=== PATIENT | female | born 1960 | race Caucasian/White ===

== ENCOUNTER → 2016-10-03 | Outpatient (CLI) | payer MEDICARE ==
[2016-10-03 16:26] LABS: BASOPHILS % (AUTO) 0 % (0-2); EOSINOPHILS % (AUTO) 0 % (0-4); LYMPHOCYTES # (AUTO) 2.7 X10^3; MEAN CORPUSCULAR HEMOGLOBIN 29.8 PG (26.0-34.0); MEAN CORPUSCULAR HGB CONC 34.8 g/dL (31.0-37.0); MEAN CORPUSCULAR VOLUME 86 FL (80-100); MEAN PLATELET VOLUME 10.2 FL (6.0-9.5); MONOCYTES # (AUTO) 0.7 X10^3; MONOCYTES % (AUTO) 8 % (3-11); NEUTROPHILS # (AUTO) 5.9 X10^3; NEUTROPHILS % (AUTO) 63 % (51-67); PLATELET COUNT 417 10^3uL (150-450); WHITE BLOOD COUNT 9.31 10^3uL (4.0-11.0)
== END ==
LOC: EDBD 15:59 → LAB 15:59
PROVIDERS: ATTEND Internal Medicine Hematology & Oncology
DX: D68.61 Antiphospholipid syndrome (principal); R53.83 Other fatigue; E78.00 Pure hypercholesterolemia, unspecified
CPT/HCPCS: 36415; 80061; 82306; 82607; 84443; 85025

== ENCOUNTER → 2016-10-20 | Emergency (ER) | payer MEDICARE ==
[~2016-10-20] VITALS: Ht 162.6 cm; Wt 90.2 kg
--- NOTE | 2016-10-20 15:33 | NUR ---
Pt states to MD that she does not want any medications due to previous severe reactions. MD talked to pt about risks vs benefits
[2016-10-20 15:59] LABS: BASOPHILS % (AUTO) 0 % (0-2); EOSINOPHILS % (AUTO) 0 % (0-4); LYMPHOCYTES # (AUTO) 2.1 X10^3; MEAN CORPUSCULAR HGB CONC 35.1 g/dL (31.0-37.0); MEAN CORPUSCULAR VOLUME 86 FL (80-100); MEAN PLATELET VOLUME 10.5 FL (6.0-9.5); MONOCYTES # (AUTO) 0.6 X10^3; MONOCYTES % (AUTO) 7 % (3-11); NEUTROPHILS % (AUTO) 68 % (51-67); PLATELET COUNT 364 10^3uL (150-450); WHITE BLOOD COUNT 8.88 10^3uL (4.0-11.0)
[2016-10-20 16:03] LABS: ALBUMIN 4.2 g/dL (3.4-5.0); ALKALINE PHOSPHATASE 104 U/L (38-126); BUN/CREATININE RATIO 23 (10-20); CALCULATED IONIZED CALCIUM 3.8 mg/dL (3.8-4.6); TOTAL PROTEIN 7.9 g/dL (6.4-8.5)
[2016-10-20 17:20] VITALS: BP 165/88
== END | disposition home or self-care (01) ==
LOC: ED 15:10
DX: R07.9 Chest pain, unspecified (principal)
CPT/HCPCS: 36415; 71010; 80053; 84484; 85025; 85379; 93005; 93010; 99284

== ENCOUNTER → 2016-11-13 | Outpatient (REF) | payer MEDICARE | LOC: LAB 10:14 | PROVIDERS: ATTEND Family Medicine | DX: R73.01 Impaired fasting glucose (principal); E78.1 Pure hyperglyceridemia; H93.19 Tinnitus, unspecified ear; I10 Essential (primary) hypertension | CPT/HCPCS: 80061; 82607; 82746; 83036; 84443 ==

== ENCOUNTER → 2017-01-30 | Outpatient (CLI) | payer MEDICARE ==
[~2017-01-30] MED LIST: ENOX120D5 SQ; LANS30CA14 PO; OMEP20CA12 PO
--- NOTE | 2017-01-31 12:16 | Diagnostic Imaging Report ---
EXAM: DIG PATRICIA BILAT SCREEN W CAD The current study was also evaluated with a Computer Aided Detection (CAD) system. INDICATION: Screening. COMPARISON: Mammograms of 01/14/2014, 07/29/2015. DENSITY: Scattered areas of fibroglandular density. FINDINGS: No significant change. No mass, calcification or architectural distortion suspicious for malignancy in either breast. IMPRESSION: No mammographic findings suspicious for malignancy. RECOMMENDATION: Routine screening mammography in one year. BI-RADS category 1: Negative. ACR BI-RADS Category 1: Negative. Result letter will be mailed to the patient. Note: At least 10% of breast cancer is not imaged by mammography. Dictated by: Dictated on workstation # [id number]
== END ==
LOC: RAD 08:29
PROVIDERS: ATTEND Family Medicine
DX: Z12.31 Encounter for screening mammogram for malignant neoplasm of breast (principal)

== ENCOUNTER 2017-02-14 09:45 | Outpatient (RCR) | payer MEDICARE ==
--- NOTE | 2017-01-09 11:21 | PT/OT/ST INITIAL EVALUATION ---
Department of Health and Human Services Form Approved [facility] Care Financing Administration OMB No. [id number] PLAN OF CARE/ASSESSMENT FOR OUTPATIENT REHABILITATION (Complete for Initial Claims Only) 1. PATIENT'S NAME Christina Cárdenas 2. ACC # [id number] 3. [facility] [id number] 4. PROVIDER NO. [id number] 5. TYPE: PT 6. PRIOR HOSPITALIZATION None 7. PRIMARY DX M54.16 left lumbar radiculopathy 8. SECONDARY DX Low back pain, weakness, and difficulty walking. 9. ONSET DATE August 2016 10. REFERRAL DATE 01/05/2017 11. SOC. DATE 01/08/2017 12. TIME OF EVAL 8:46 a.m. to 9:39 a.m. 12. REFERRING PHYSICIAN Dr. Andrea Gonzalez 13. CHARGES/UNITS PT evaluation low complexity 81585 Therapeutic exercise 14241, 2 units 14. G CODES The Oswestry rates the patient as H2192-PO 36% limited and the goal is W8669-BC 0% limited in order to be able to return to walking for exercise and to be able to get up off the floor with minimal deviation. 15. PRIOR LEVEL OF FUNCTION; PERTINENT HISTORY (Prior therapy results, reason for referral.) S: Prior to therapy, the patient consented to today's evaluation and treatment. The patient is a 56-year-old female referred to physical therapy by Dr. Gonzalez to address functional limitations secondary to left lumbar radiculopathy. Mechanism of injury: The patient reports that 18 years ago she had a chip on her tailbone and has not had very many issues since and in August [address] to [place] from [place] and pain began at that time. The patient reports that she has fallen several times in the last month. She has pain down into her left leg to her mid calf. The patient reports having pain, numbness and tingling into her left calf. The patient states that she has bilateral low back pain, which is greater on the right side than the left. Primary Complaint: Bilateral low back pain, worse on the right and left lower extremity pain down to the mid calf. Occupational and social history: Voiceover artist, semi-retired. Prior level of function: The patient was able to do all of her normal activity with no issues prior to August 2016 and since August 2016, has had several falls due to her left leg giving out from underneath her. Pain level: The patient rates the current pain level at worst, 9/10 and can get as low as 0/10. The patient describes the pain as a stabbing pain. Obstacles to delivery of care: None noted. Aggravating factors: Include sitting, getting out of bed, taking a misstep. Relieving factors: Include an ice pack. Diagnostic testing: None. Past medical history: Includes having a previous left ankle fracture and no issues currently, environmental allergies, ulcers and stomach problems, high blood pressure which she is trying to control with diet and it is going down. Had a stroke in 2007, blood clot in 2009 in her knee which led to 2 pulmonary embolisms, so therefore is currently on high levels of blood thinners and wears a wrist band stating that. Past surgical history: Tonsillectomy, 2 C-sections, hysterectomy and oophorectomy. Current medications: Enoxaparin, Omeprazole. Leisure activities: Include swimming and walking. Activity level: Listed as low. The patient did walk around the [place] one time. Personal health rating: Listed as fair. Patient's Goal: The patient's goal for physical therapy is to relieve pain. 16. INITIAL ASSESSMENT/SAFETY PRECAUTIONS/MEDICAL COMPLICATIONS (Level of function at start of care. Be specific, use objective measures, list problems.) O: APPEARANCE AND OBSERVATION: The patient enters the clinic without any assistive device and ambulates with an antalgic gait pattern. The patient lives in a home with 2 steps into the home with no rail. No stairs inside her home and her daughter and father also live with her. The patient has had frequent falls. No bowel or bladder issues. No saddle anesthesia. The patient is unable to lay supine with legs extended. The patient has significant pain and altered motion when going from a sitting to standing position and also when standing to sitting. The patient has difficulty in a right-side lying position and does better with a left-side lying position and difficulty bending forward with aberrant motion going back to an upright posture. The patient was found to have L1 through 4 rotated to the left during flexion testing. PALPATION: The patient was tender through bilateral low back. SPECIAL TESTS: Right slump test done bilaterally positive for nerve tightness and left lower extremity slump test negative for nerve tightness and indicates muscle tightness. RANGE OF MOTION/FLEXIBILITY: Flexion 25% limited by pain and stiffness. Extension 90%, side bending bilateral 75%, right rotation 50% with pain, left rotation 50% with pain. STRENGTH: Manual muscle testing of lower extremities-flexion left 3/5, right 4/5. Abduction left 3/5, right 4-/5. Extension bilateral 3+/5. Knee manual muscle testing -flexion and extension left 3+/5, right 4-/5. Dorsiflexion and plantar flexion bilateral 4-/5. TODAY'S TREATMENT: Included the initial PT evaluation followed therapeutic exercise and the patient was instructed on a home exercise program. 17. INITIAL POC: (Specify procedures, modalities, short and chcf goals) A: This patient presents with the diagnosis of left lumbar radiculopathy with functional limitations of weakness, difficulty walking and low back pain. The patient would benefit from physical therapy in order to restore proper symmetry through low back and pelvis, as well as gaining motor control and activation of deep stabilizer muscles in order to decrease pain and decrease aberrant movement with positional changes. PROGNOSIS: The patient has a fair prognosis for increased overall functional capacity with regular therapy attendance and compliance with prescribed home exercise program. CONTRAINDICATIONS, PRECAUTIONS AND OBSTACLES TO DELIVERY OF CARE: The patient is on a high level of blood thinners and wears a bracelet on her left wrist. INFORMED CONSENT: The prognosis and goals were discussed with the patient, as well as the expected outcomes and possible risks. The patient agreed to undergo PT evaluation and further treatment. SHORT TERM GOALS: 1. The Oswestry is currently rating the patient as [id number]-HC 36% limited and the goal is M0075-CY 0% limited in order to be able to ambulate with minimal deviation. 2. The patient is to have a decrease in pain of the low back and left lower extremity to less than or equal to 2/10 in 6 weeks in order to return to walking without deviation. 3. The patient is to have an increase in manual muscle testing of the hips to 4+/5 in 6 weeks in order to be able to get up from the floor and bend forward at her waist without deviation for photographer still. 4. The patient is to have an increase in active range of motion of the lumbar spine in all planes to 75% without pain and without aberrant movement in order to return to cleaning without deviation. 5. The patient is to be independent with progressive home exercise program. P: Plan to treat this patient 2 times a week for 6 weeks. Treatment to include modalities for pain, and inflammation, manual therapy interventions, therapeutic exercise, active and passive range of motion, gait training, balance proprioceptive training, neural reeducation, and patient education and prescription of progressive home exercise program as tolerable. 18. FREQUENCY 2 times per week 19. DURATION 6 weeks 20. FUNCTIONAL LEVEL (End of claim period) 21. PHYSICIAN SIGNATURE ? ON FILE OR ENTER HERE: 22. DATE: I certify the need for these services furnished under this plan of care and if for partial hospitalization. 23. CERTIFICATION FROM THROUGH FORM [id number]
== END 2017-02-26 09:04 | disposition home or self-care (01) ==
LOC: PT 09:45
PROVIDERS: ATTEND Family Medicine
DX: M54.16 Radiculopathy, lumbar region (principal); M54.5 Low back pain; R53.1 Weakness; R26.2 Difficulty in walking, not elsewhere classified
CPT/HCPCS: 97110; 97140; 97161; G0283; G8978; G8979; 97014

== ENCOUNTER → 2017-02-16 | Outpatient (CLI) | payer MEDICARE ==
--- NOTE | 2017-02-16 18:28 | Diagnostic Imaging Report ---
INDICATION: Lumbar pain since August [address] drive, tailbone injury approximately 20 years ago. FINDINGS: Frontal and lateral views of the lumbar spine demonstrate no fracture or subluxation. There is disc space narrowing at L5-S1 with mild sclerosis. Mild facet arthropathy is also present at this level. IMPRESSION: There are degenerative changes of the L5-S1 disc space. Dictated by: Dictated on workstation # [id number]
== END ==
LOC: RAD 10:53
PROVIDERS: ATTEND Family Medicine
DX: M54.5 Low back pain (principal)
CPT/HCPCS: 72100

== ENCOUNTER → 2017-02-16 | Outpatient (REF) | payer MEDICARE | LOC: LAB 11:11 | PROVIDERS: ATTEND Family Medicine | DX: R10.11 Right upper quadrant pain (principal); M54.5 Low back pain; K21.9 Gastro-esophageal reflux disease without esophagitis | CPT/HCPCS: 86677 ==